=== PATIENT | male | born 1945 ===

== ENCOUNTER 2016-12-23 08:50 | Day surgery (SDC) | payer MEDICARE ==
[2016-12-23 09:37] VITALS: BMI 26.5
[2016-12-23] MEDS ORDERED: Midazolam 2 MG/2 ML VIAL ONE (10:54)
[2016-12-23] MEDS ORDERED: Propofol 10 mg/ml Inj (20 ML) ONE (10:54)
[2016-12-23] MEDS ORDERED: Lactated Ringer's 500 ML IV ONE (11:46)
[2016-12-23 13:39] VITALS: TEMP 96.8; O2SAT 100
[2016-12-23 13:43] VITALS: BP 112/84; PULSE 61; RESP 13
== END 2016-12-23 14:05 | disposition home or self-care (01) ==
LOC: C.ENDO 08:50
PROVIDERS: ATTEND Internal Medicine Gastroenterology
DX: K29.50 Unspecified chronic gastritis without bleeding (principal); K31.89 Other diseases of stomach and duodenum; D12.2 Benign neoplasm of ascending colon; K57.30 Diverticulosis of large intestine without perforation or abscess without bleeding; K64.8 Other hemorrhoids; I89.0 Lymphedema, not elsewhere classified
CPT/HCPCS: 43239; 45385; 88305; 88312; 88342; J2250; J2704; J7120

== ENCOUNTER 2017-05-12 09:48 | Inpatient (IN) | payer MEDICARE ==
[2017-05-12 09:48] VITALS: BMI 26.5
[2017-05-12] MEDS ORDERED: Bacitracin 500 Units/gm Oint Foilpak UD ONE (10:18)
--- NOTE | 2017-05-12 10:20 | C.PDOC ---
History Of Present Illness 71 year old male who presents to the ER after he was bite by his pitbull yesterday while playing with it. Patient notes it was a quick bite but is complaining of pain and redness today. Patient reports the dog has all it's vaccinations; denies fever. Time Seen by Provider: 05/12/17 10:05 Chief Complaint (Nursing): Bite History Per: Patient History/Exam Limitations: no limitations Onset/Duration Of Symptoms: Days Current Symptoms Are (Timing): Still Present Location Of Injury: Left: Forearm Quality Of Symptoms: Other (Bite) Recent travel outside of the [place]: No Past Medical History Reviewed: Historical Data, Nursing Documentation, Vital Signs Vital Signs: Last Vital Signs Temp 97.5 F L 05/15/17 07:54 Pulse 68 05/15/17 07:54 Resp 19 05/15/17 07:54 BP 118/65 05/15/17 07:54 Pulse Ox 93 L 05/15/17 07:54 - Medical History PMH: Arthritis (GENERALIZED), CAD, Gastritis, Hypercholesterolemia Surgical History: Endoscopy - [facility] Procedures CLOSURE SKIN & SUBCUTANEOUS NEC (06/20/13) TETANUS TOXOID ADMINIST (06/20/13) Family History: States: Unknown Family Hx - Social History Hx Tobacco Use: No Hx Alcohol Use: No Hx Substance Use: No - Immunization History Hx Tetanus Toxoid Vaccination: No Hx Influenza Vaccination: No Hx Pneumococcal Vaccination: No Review Of Systems Except As Marked, All Systems Reviewed And Found Negative. Constitutional: Negative for: Fever, Chills Musculoskeletal: Positive for: Arm Pain Skin: Positive for: Other (Bite) Neurological: Negative for: Weakness, Numbness Physical Exam - Physical Exam Appears: Non-toxic Skin: Warm, Dry Head: Atraumatic, Normacephalic Oral Mucosa: Moist Respiratory: No Accessory Muscle Use Extremity: Normal ROM (x4), Other (3 puncture wounds over left anterior forearm. Redness over distal 2/3 of the forearm. Induration around bite, no fluctuance or purulent discharge.) Pulses: Left Radial: Normal, Right Radial: Normal Neurological/Psych: Oriented x3, Normal Speech, Normal Cognition ED Course And Treatment - Laboratory Results Result Diagrams: 05/15/17 07:52 05/15/17 07:52 O2 Sat by Pulse Oximetry: 98 (Room air) Pulse Ox Interpretation: Normal Medical Decision Making Medical Decision Making: Plan: * Blood work * Left forearm x-ray * Tetanus vaccination * Piperacillin Disposition - Disposition Disposition: HOSPITALIZED Disposition Time: 10:53 Condition: STABLE - Clinical Impression Clinical Impression: Dog bite of arm, Cellulitis - Scribe Statement The provider has reviewed the documentation as recorded by the Scribe Flakito Tillman All medical record entries made by the Janelleibradha were at my direction and personally dictated by me. I have reviewed the chart and agree that the record accurately reflects my personal performance of the history, physical exam, medical decision making, and the department course for this patient. I have also personally directed, reviewed, and agree with the discharge instructions and disposition.
[2017-05-12] MEDS ORDERED: Piperacill/Tazo 3.375gm in Dex 3.375 GM/50 ML BAG IVPB STA (10:21)
[2017-05-12] MEDS ORDERED: Piperacillin/Tazobact 3.375 gm 100 ML IVPB ONE (10:34)
[2017-05-12 10:37] LABS: BASO # 0.1 K/uL (0.0-0.2); BASO % 0.6 % (0.0-2.0); EOS # 0.1 K/uL (0.0-0.7); EOS % 0.9 % (0.0-4.0); HEMATOCRIT 41.9 % (35.0-51.0); LYMPH % 17.7 % (20.0-40.0); MEAN CELL VOLUME 82.4 fL (80.0-94.0); MEAN CORPUSCULAR HEMOGLOBIN 27.7 pg (27.0-31.0); MEAN CORPUSCULAR HGB CONC 33.6 g/dL (33.0-37.0); MONO # 0.9 K/uL (0.0-0.8); MONO % 8.4 % (0.0-10.0); WHITE BLOOD COUNT 11.1 K/uL (4.8-10.8)
[2017-05-12 10:49] LABS: ALB/GLOB RATIO 1.1 (1.0-2.1); ALKALINE PHOSPHATASE 85 U/L (38-126); ALT/SGPT 31 U/L (21-72); AST/SGOT 23 U/L (17-59); BILIRUBIN,TOTAL 2.5 mg/dL (0.2-1.3); BLOOD UREA NITROGEN 15 mg/dL (9-20); CALCIUM 8.6 mg/dl (8.6-10.4); CARBON DIOXIDE 24 mmol/L (22-30); CHLORIDE 102 mmol/L (98-107); GFR AFRICAN-AMERICAN > 60; GLUCOSE,RANDOM 77 mg/dL (75-110); POTASSIUM 4.2 mmol/L (3.6-5.2); SODIUM 139 mmol/L (132-148); TOTAL PROTEIN 7.3 g/dL (6.3-8.3)
--- NOTE | 2017-05-12 11:00 | RAD ---
PROCEDURE: Radiographs of the left forearm. HISTORY: dog bite COMPARISON: None available. FINDINGS: BONES: No acute displaced fracture. JOINTS: No dislocation. SOFT TISSUES: Soft tissue swelling. Vascular calcifications. No evidence of radiopaque foreign body. JOINT EFFUSION: No significant joint effusion. OTHER FINDINGS: None IMPRESSION: Soft tissue swelling.
[2017-05-12] MEDS: HYDROmorphone 0.5 mg/0.5 ml ISec IVP PRN (12:57)
--- NOTE | 2017-05-12 13:38 | CP.PCM.CON ---
History of Present Illness - History of Present Illness History of Present Illness: 71 year old male who presents to the ER after he was bite by his pitbull yesterday while playing with it. Patient notes it was a quick bite but is complaining of pain and redness today. Patient reports the dog has all it's vaccinations; denies fever. right arm swollen warm tender - Medical History PMH: Arthritis (GENERALIZED), CAD, Gastritis, Hypercholesterolemia Surgical History: Endoscopy Review of Systems - Constitutional Constitutional: As Per HPI - EENT Eyes: absent: As Per HPI, Blind Spots, Blurred Vision, Change in Vision, Decreased Night Vision, Diplopia, Discharge, Dry Eye, Exophthalmos, Floaters, Irritation, Itchy Eyes, Loss of Peripheral Vision, Pain, Photophobia, Requires Corrective Lenses, Sees Flashes, Spots in Vision, Tunnel Vision, Other Visual Disturbances, Loss of Vision, Other Ears: absent: As Per HPI, Decreased Hearing, Ear Discharge, Ear Pain, Tinnitus, Abnormal Hearing, Disequilibrium, Dizziness, Other Nose/Mouth/Throat: absent: As Per HPI, Epistaxis, Nasal Congestion, Nasal Discharge, Nasal Obstruction, Nasal Trauma, Nose Pain, Post Nasal Drip, Sinus Pain, Sinus Pressure, Bleeding Gums, Change in Voice, Dental Pain, Dry Mouth, Dysphagia, Halitosis, Hoarsness, Lip Swelling, Mouth Lesions, Mouth Pain, Odynophagia, Sore Throat, Throat Swelling, Tongue Swelling, Facial Pain, Neck Pain, Neck Mass, Other - Cardiovascular Cardiovascular: absent: As Per HPI, Acrocyanosis, Chest Pain, Chest Pain at Rest , Chest Pain with Activity, Claudication, Diaphoresis, Dyspnea, Dyspnea on Exertion, Edema, Irregular Heart Rhythm, Pain Radiating to Arm/Neck/Jaw, Leg Edema, Leg Ulcers, Lightheadedness, Orthopnea, Palpitations, Paroxysmal Nocturnal Dyspnea, Pedal Edema, Radiating Pain, Rapid Heart Rate, Slow Heart Rate, Syncope, Other - Respiratory Respiratory: absent: As Per HPI, Cough, Dyspnea, Hemoptysis, Dyspnea on Exertion , Wheezing, Snoring, Stridor, Pain on Inspiration, Chest Congestion, Excessive Mucous Production, Change in Mucous Color, Pain with Coughing, Other - Gastrointestinal Gastrointestinal: absent: As Per HPI, Abdominal Pain, Belching, Bloating, Change in Bowel Habits, Change in Stool Character, Coffee Ground Emesis, Constipation, Cramping, Diarrhea, Dyspepsia, Dysphagia, Early Satiety, Excessive Flatus, Fecal Incontinence, Heartburn, Hematemesis, Hematochezia, Loose Stools, Melena, Nausea, Odynophagia, Temesmus, Vomiting, Other - Genitourinary Genitourinary: absent: As Per HPI, Change in Urinary Stream, Difficulty Urinating, Dysuria, Flank Pain, Hematuria, Pyuria, Nocturia, Urinary Incontinence, Urinary Frequency, Urinary Hesitance, Urinary Urgency, Voiding Freq/Small Amts, Freq UTI, Hx Renal/Bladder Calculi, Hx /Renal Surgery, Bladder Distension, Other - Musculoskeletal Musculoskeletal: As Per HPI - Integumentary Integumentary: As Per HPI - Neurological Neurological: absent: As Per HPI, Abnormal Gait, Abnormal Hearing, Abnormal Movements, Abnormal Speech, Behavioral Changes, Burning Sensations, Confusion, Convulsions, Disequilibrium, Dizziness, Numbness, Focal Weakness, Frequent Falls , Headaches, Lack of Coordination, Loss of Vision, Memory Loss, Paresthesias, Radicular Pain, Restless Legs, Sensory Deficit, Syncope, Tingling, Tremor, Vertigo, Weakness, Other Visual Disturbances, Other - Psychiatric Psychiatric: absent: As Per HPI, Abnormal Sleep Pattern, Anhedonia, Anxiety, Auditory Hallucinations, Behavioral Changes, Change in Appetite, Change in Libido, Confusion, Depression, Difficulty Concentrating, Hallucinations, Homicidal Ideation, Hopelessness, Irritability, Memory Loss, Mood Swings, Panic Attacks, Paranoia, Suicidal Ideation, Visual Hallucinations, Tactile Hallucinations, Other - Endocrine Endocrine: absent: As Per HPI, Change in Body Appearance, Change in Libido, Cold Intolorance, Deepening of Voice, Excessive Sweating, Fatigue, Flushing, Heat Intolorance, Increase in Ring/Shoe/Hat Size, Palpitations, Polydipsia, Polyphagia, Polyuria, Other - Hematologic/Lymphatic Hematologic: absent: As Per HPI, Easy Bleeding, Easy Bruising, Lymphadenopathy, Other Past Patient History - Past Medical History & Family History Past Medical History?: Yes - Past Social History Smoking Status: Former Smoker - CARDIAC Hx Hypercholesterolemia: Yes - PULMONARY Hx Respiratory Disorders: No - NEUROLOGICAL Hx Neurological Disorder: No - HEENT Hx HEENT Problems: Yes Hx Cataracts: Yes (BILATERAL) - RENAL Hx Chronic Kidney Disease: No - ENDOCRINE/METABOLIC Hx Endocrine Disorders: No - HEMATOLOGICAL/ONCOLOGICAL Hx Blood Disorders: No - INTEGUMENTARY Hx Dermatological Problems: No - MUSCULOSKELETAL/RHEUMATOLOGICAL Hx Arthritis: Yes (GENERALIZED) Hx Falls: No - GASTROINTESTINAL Hx Gastritis: Yes - GENITOURINARY/GYNECOLOGICAL Hx Genitourinary Disorders: Yes Hx Prostate Problems: Yes (BPH) - PSYCHIATRIC Hx Substance Use: No - SURGICAL HISTORY Hx Surgeries: Yes Hx Cataract Extraction: Yes (BIOL) Hx Herniorrhaphy: Yes (BILATERAL INGUINAL) Hx Musculoskeletal Surgery: Yes (FX LEFT LEG) Other/Comment: PROSTATE - ANESTHESIA Hx Anesthesia: Yes Hx Anesthesia Reactions: No Hx Malignant Hyperthermia: No Meds Allergies/Adverse Reactions: Allergies Allergy/AdvReac Type Severity Reaction Status Date / Time ibuprofen Allergy ANAPHYLAXIS Verified 05/12/17 10:03 ketorolac tromethamine Allergy ANAPHYLAXIS Verified 05/12/17 10:03 [From Toradol] - Medications Medications: Current Medications Hydromorphone HCl (Dilaudid) 0.5 mg IVP Q8H PRN PRN Reason: Pain, severe (8-10) Last Admin: 05/12/17 12:57 Dose: 0.5 mg Piperacillin Sod/Tazobactam Sod (Zosyn 3.375 Gm Iv Premix) 3.375 gm in 50 mls @ 100 mls/hr IVPB Q8H [facility] Physical Exam - Constitutional Appears: Non-toxic, No Acute Distress - Head Exam Head Exam: NORMOCEPHALIC - Eye Exam Eye Exam: absent: Scleral icterus - ENT Exam ENT Exam: Mucous Membranes Dry, Normal External Ear Exam - Neck Exam Neck exam: Negative for: Lymphadenopathy - Respiratory Exam Respiratory Exam: Decreased Breath Sounds - Cardiovascular Exam Cardiovascular Exam: REGULAR RHYTHM, +S1, +S2 - GI/Abdominal Exam GI & Abdominal Exam: Diminished Bowel Sounds, Soft. absent: Tenderness - Rectal Exam Rectal Exam: Deferred - Extremities Exam Extremities exam: Positive for: pedal pulses present. Negative for: calf tenderness, pedal edema, tenderness Additional comments: right forearm swelling + pulses ++ wounds noted - Back Exam Back exam: absent: CVA tenderness (L), CVA tenderness (R) - Neurological Exam Neurological exam: Alert, CN II-XII Intact, Oriented x3, Reflexes Normal - Psychiatric Exam Psychiatric exam: Normal Mood - Skin Skin Exam: Dry, Intact Results - Vital Signs Recent Vital Signs: Last Vital Signs Temp 97.5 F L 05/12/17 11:55 Pulse 61 05/12/17 11:55 Resp 20 05/12/17 11:55 BP 143/64 05/12/17 11:55 Pulse Ox 97 05/12/17 11:55 - Labs Result Diagrams: 05/12/17 10:29 05/12/17 10:29 Assessment & Plan (1) Dog bite of arm Status: Acute (2) Cellulitis Status: Acute - Assessment and Plan (Free Text) Assessment: cont rx cellulitis concern for pasteurella multocida IV Zosyn ordered
[2017-05-12] MEDS: Enoxaparin 40 mg Syringe SC SCH (14:08)
--- NOTE | 2017-05-12 14:29 | CP.PCM.PN ---
Subjective - Date & Time of Evaluation Date of Evaluation: 05/12/17 Time of Evaluation: 10:00 - Subjective Subjective: clinically same Objective - Vital Signs/Intake and Output Vital Signs (last 24 hours): Temp Pulse Resp BP Pulse Ox 97.5 F L 61 20 143/64 97 05/12/17 11:55 05/12/17 11:55 05/12/17 11:55 05/12/17 11:55 05/12/17 11:55 - Medications Medications: Current Medications Enoxaparin Sodium (Lovenox) 40 mg SC DAILY [facility] Last Admin: 05/12/17 14:08 Dose: 40 mg Hydromorphone HCl (Dilaudid) 0.5 mg IVP Q8H PRN PRN Reason: Pain, severe (8-10) Last Admin: 05/12/17 12:57 Dose: 0.5 mg Piperacillin Sod/Tazobactam Sod (Zosyn 3.375 Gm Iv Premix) 3.375 gm in 50 mls @ 100 mls/hr IVPB Q8H [facility] - Constitutional Appears: Well - Head Exam Head Exam: ATRAUMATIC, NORMAL INSPECTION, NORMOCEPHALIC - Eye Exam Eye Exam: EOMI, Normal appearance, PERRL Pupil Exam: NORMAL ACCOMODATION, PERRL - ENT Exam ENT Exam: Mucous Membranes Moist, Normal Exam - Neck Exam Neck Exam: Full ROM, Normal Inspection. absent: Lymphadenopathy - Respiratory Exam Respiratory Exam: Decreased Breath Sounds - Cardiovascular Exam Cardiovascular Exam: REGULAR RHYTHM, +S1, +S2 - GI/Abdominal Exam GI & Abdominal Exam: Soft, Diminished Bowel Sounds - Rectal Exam Rectal Exam: Deferred
[2017-05-12] MEDS: Piperacill/Tazo 3.375gm in Dex 3.375 GM/50 ML BAG IVPB SCH (17:35)
[2017-05-13] MEDS: Piperacill/Tazo 3.375gm in Dex 3.375 GM/50 ML BAG IVPB SCH ×3 (01:33→17:28)
[2017-05-13] MEDS: HYDROmorphone 0.5 mg/0.5 ml ISec IVP PRN ×2 (01:37→16:09)
[2017-05-13] MEDS: Enoxaparin 40 mg Syringe SC SCH (10:36)
--- NOTE | 2017-05-13 13:51 | CP.PCM.PN ---
Subjective - Date & Time of Evaluation Date of Evaluation: 05/13/17 Time of Evaluation: 13:45 - Subjective Subjective: Progress note. Service for Dr. Sinai Johnson Pt seen/examined at bedside. No acute distress. No events overnight. Pt complaining of some mild pain left forearm. No fevers, chills, vomiting, diarrhea, chest pain, sob. Objective - Vital Signs/Intake and Output Vital Signs (last 24 hours): Temp Pulse Resp BP Pulse Ox 97.6 F 64 20 117/68 96 05/13/17 08:18 05/13/17 08:18 05/13/17 08:18 05/13/17 08:18 05/13/17 08:18 - Medications Medications: Current Medications Enoxaparin Sodium (Lovenox) 40 mg SC DAILY [facility] Last Admin: 05/13/17 10:36 Dose: 40 mg Hydromorphone HCl (Dilaudid) 0.5 mg IVP Q8H PRN PRN Reason: Pain, severe (8-10) Last Admin: 05/13/17 01:37 Dose: 0.5 mg Piperacillin Sod/Tazobactam Sod (Zosyn 3.375 Gm Iv Premix) 3.375 gm in 50 mls @ 100 mls/hr IVPB Q8H [facility] Last Admin: 05/13/17 09:55 Dose: 100 mls/hr - Constitutional Appears: Non-toxic, No Acute Distress - Head Exam Head Exam: ATRAUMATIC, NORMAL INSPECTION, NORMOCEPHALIC - Eye Exam Eye Exam: EOMI - ENT Exam ENT Exam: Mucous Membranes Moist - Neck Exam Neck Exam: Full ROM, Normal Inspection - Respiratory Exam Respiratory Exam: NORMAL BREATHING PATTERN. absent: Respiratory Distress - Cardiovascular Exam Cardiovascular Exam: +S1, +S2 - GI/Abdominal Exam GI & Abdominal Exam: Soft, Normal Bowel Sounds. absent: Tenderness - Extremities Exam Extremities Exam: Full ROM, Tenderness. absent: Normal Inspection Additional comments: Cellulitis with some erythema left forearm - Neurological Exam Neurological Exam: Alert, Awake, Oriented x3 - Psychiatric Exam Psychiatric exam: Normal Affect, Normal Mood - Skin Skin Exam: Dry, Intact, Normal Color, Warm Assessment and Plan - Assessment and Plan (Free Text) Assessment: This is a 71 yo male with no past medical hx presenting s/p dog bite left forearm 1. Cellulitis left forearm -ID consult. Dr. Guthrie. recs appreciated -concern for Pasturella -cultures pending -pt afebrile -continue dilaudid for pain -continue IV zosyn q 8 -PT eval 2. GI/DVT ppx -lovenox daily -protonix daily dw Dr. Johnson.
[2017-05-13 14:03] LABS: BASO % 0.3 % (0.0-2.0); EOS # 0.1 K/uL (0.0-0.7); EOS % 1.2 % (0.0-4.0); LYMPH # 1.8 K/uL (1.0-4.3); LYMPH % 22.1 % (20.0-40.0); MEAN CELL VOLUME 83.2 fL (80.0-94.0); MEAN CORPUSCULAR HGB CONC 33.7 g/dL (33.0-37.0); MEAN PLATELET VOLUME 8.4 fL (7.2-11.7); MONO # 0.5 K/uL (0.0-0.8); MONO % 6.2 % (0.0-10.0); RED CELL DISTRIBUTION WIDTH 14.3 % (11.5-14.5); WHITE BLOOD COUNT 8.1 K/uL (4.8-10.8)
[2017-05-13 14:19] LABS: ALB/GLOB RATIO 1.1 (1.0-2.1); ALKALINE PHOSPHATASE 86 U/L (38-126); ALT/SGPT 31 U/L (21-72); AST/SGOT 19 U/L (17-59); BLOOD UREA NITROGEN 15 mg/dL (9-20); CALCIUM 8.7 mg/dl (8.6-10.4); CARBON DIOXIDE 28 mmol/L (22-30); CHLORIDE 99 mmol/L (98-107); GFR AFRICAN-AMERICAN > 60; GLUCOSE,RANDOM 122 mg/dL (75-110); POTASSIUM 4.5 mmol/L (3.6-5.2); SODIUM 138 mmol/L (132-148); TOTAL PROTEIN 6.9 g/dL (6.3-8.3)
--- NOTE | 2017-05-13 16:39 | CP.PCM.PN ---
Subjective - Date & Time of Evaluation Date of Evaluation: 05/13/17 Time of Evaluation: 07:00 - Subjective Subjective: left arm still warm red and swollen teender cultures pending iv rx in progress Objective - Vital Signs/Intake and Output Vital Signs (last 24 hours): Temp Pulse Resp BP Pulse Ox 97.4 F L 68 20 118/66 96 05/13/17 15:51 05/13/17 15:51 05/13/17 15:51 05/13/17 15:51 05/13/17 15:51 - Medications Medications: Current Medications Enoxaparin Sodium (Lovenox) 40 mg SC DAILY [facility] Last Admin: 05/13/17 10:36 Dose: 40 mg Hydromorphone HCl (Dilaudid) 0.5 mg IVP Q8H PRN PRN Reason: Pain, severe (8-10) Last Admin: 05/13/17 16:09 Dose: 0.5 mg Piperacillin Sod/Tazobactam Sod (Zosyn 3.375 Gm Iv Premix) 3.375 gm in 50 mls @ 100 mls/hr IVPB Q8H [facility] Last Admin: 05/13/17 09:55 Dose: 100 mls/hr Pantoprazole Sodium (Protonix Inj) 40 mg IVP DAILY [facility] Last Admin: 05/13/17 16:09 Dose: 40 mg - Labs Labs: 05/13/17 13:50 05/13/17 13:50 - Constitutional Appears: Non-toxic, Chronically Ill - Head Exam Head Exam: NORMOCEPHALIC - Eye Exam Eye Exam: PERRL - ENT Exam ENT Exam: Mucous Membranes Dry - Neck Exam Neck Exam: absent: Lymphadenopathy - Respiratory Exam Respiratory Exam: Decreased Breath Sounds - Cardiovascular Exam Cardiovascular Exam: REGULAR RHYTHM - GI/Abdominal Exam GI & Abdominal Exam: Distended, Soft - Rectal Exam Rectal Exam: Deferred - Exam Exam: NORMAL INSPECTION - Extremities Exam Extremities Exam: absent: Calf Tenderness, Pedal Edema - Back Exam Back Exam: absent: CVA tenderness (L), CVA tenderness (R), paraspinal tenderness - Neurological Exam Neurological Exam: Alert, Awake, Oriented x3 Assessment and Plan (1) Dog bite of arm Status: Acute (2) Cellulitis Status: Acute - Assessment and Plan (Free Text) Plan: cont iv rxd and wound care may need i and d
--- NOTE | 2017-05-13 22:01 | CP.PCM.PN ---
Subjective - Date & Time of Evaluation Date of Evaluation: 05/13/17 Time of Evaluation: 08:40 - Subjective Subjective: clinically same Objective - Vital Signs/Intake and Output Vital Signs (last 24 hours): Temp Pulse Resp BP Pulse Ox 97.4 F L 68 20 118/66 96 05/13/17 15:51 05/13/17 15:51 05/13/17 15:51 05/13/17 15:51 05/13/17 15:51 Intake and Output: 05/13/17 05/14/17 18:59 06:59 Intake Total 550 Balance 550 - Medications Medications: Current Medications Enoxaparin Sodium (Lovenox) 40 mg SC DAILY [facility] Last Admin: 05/13/17 10:36 Dose: 40 mg Hydromorphone HCl (Dilaudid) 0.5 mg IVP Q8H PRN PRN Reason: Pain, severe (8-10) Last Admin: 05/13/17 16:09 Dose: 0.5 mg Piperacillin Sod/Tazobactam Sod (Zosyn 3.375 Gm Iv Premix) 3.375 gm in 50 mls @ 100 mls/hr IVPB Q8H [facility] Last Admin: 05/13/17 17:28 Dose: 100 mls/hr Pantoprazole Sodium (Protonix Inj) 40 mg IVP DAILY [facility] Last Admin: 05/13/17 16:09 Dose: 40 mg Tamsulosin HCl (Flomax) 0.4 mg PO HS [facility] Last Admin: 05/13/17 21:35 Dose: Not Given - Labs Labs: 05/13/17 13:50 05/13/17 13:50 - Constitutional Appears: Well - Head Exam Head Exam: ATRAUMATIC, NORMAL INSPECTION, NORMOCEPHALIC - Eye Exam Eye Exam: EOMI, Normal appearance, PERRL Pupil Exam: NORMAL ACCOMODATION, PERRL - ENT Exam ENT Exam: Mucous Membranes Moist, Normal Exam - Neck Exam Neck Exam: Full ROM, Normal Inspection. absent: Lymphadenopathy - Respiratory Exam Respiratory Exam: Decreased Breath Sounds - Cardiovascular Exam Cardiovascular Exam: REGULAR RHYTHM, +S1, +S2 - GI/Abdominal Exam GI & Abdominal Exam: Soft, Diminished Bowel Sounds - Rectal Exam Rectal Exam: Deferred
[2017-05-14] MEDS: Piperacill/Tazo 3.375gm in Dex 3.375 GM/50 ML BAG IVPB SCH ×3 (01:00→17:22)
[2017-05-14 08:51] LABS: BASO % 0.3 % (0.0-2.0); EOS # 0.1 K/uL (0.0-0.7); EOS % 1.2 % (0.0-4.0); HEMATOCRIT 44.4 % (35.0-51.0); LYMPH # 1.9 K/uL (1.0-4.3); LYMPH % 26.4 % (20.0-40.0); MEAN CELL VOLUME 83.4 fL (80.0-94.0); MEAN CORPUSCULAR HEMOGLOBIN 28.2 pg (27.0-31.0); MEAN CORPUSCULAR HGB CONC 33.8 g/dL (33.0-37.0); MEAN PLATELET VOLUME 8.4 fL (7.2-11.7); MONO # 0.4 K/uL (0.0-0.8); MONO % 5.6 % (0.0-10.0); RED CELL DISTRIBUTION WIDTH 14.4 % (11.5-14.5); WHITE BLOOD COUNT 7.3 K/uL (4.8-10.8)
[2017-05-14 09:03] LABS: CHLORIDE 104 mmol/L (98-107); SODIUM 140 mmol/L (132-148)
[2017-05-14 09:04] LABS: POTASSIUM 4.4 mmol/L (3.6-5.2)
[2017-05-14 09:06] LABS: ALB/GLOB RATIO 1.1 (1.0-2.1); ALKALINE PHOSPHATASE 87 U/L (38-126); ALT/SGPT 27 U/L (21-72); AST/SGOT 23 U/L (17-59); BILIRUBIN,TOTAL 1.7 mg/dL (0.2-1.3); BLOOD UREA NITROGEN 15 mg/dL (9-20); CARBON DIOXIDE 26 mmol/L (22-30); GFR AFRICAN-AMERICAN > 60; GLUCOSE,RANDOM 105 mg/dL (75-110); TOTAL PROTEIN 7.7 g/dL (6.3-8.3)
[2017-05-14 09:07] LABS: CALCIUM 8.6 mg/dl (8.6-10.4)
--- NOTE | 2017-05-14 09:40 | CP.PCM.PN ---
Subjective - Date & Time of Evaluation Date of Evaluation: 05/14/17 Time of Evaluation: 08:40 - Subjective Subjective: clinically same Objective - Vital Signs/Intake and Output Vital Signs (last 24 hours): Temp Pulse Resp BP Pulse Ox 97.7 F 61 20 117/68 95 05/13/17 23:40 05/13/17 23:40 05/13/17 23:40 05/13/17 23:40 05/13/17 23:40 Intake and Output: 05/14/17 05/14/17 06:59 18:59 Intake Total 550 Balance 550 - Medications Medications: Current Medications Enoxaparin Sodium (Lovenox) 40 mg SC DAILY [facility] Last Admin: 05/13/17 10:36 Dose: 40 mg Hydromorphone HCl (Dilaudid) 0.5 mg IVP Q8H PRN PRN Reason: Pain, severe (8-10) Last Admin: 05/13/17 16:09 Dose: 0.5 mg Piperacillin Sod/Tazobactam Sod (Zosyn 3.375 Gm Iv Premix) 3.375 gm in 50 mls @ 100 mls/hr IVPB Q8H [facility] Last Admin: 05/14/17 01:00 Dose: 100 mls/hr Pantoprazole Sodium (Protonix Inj) 40 mg IVP DAILY [facility] Last Admin: 05/13/17 16:09 Dose: 40 mg Tamsulosin HCl (Flomax) 0.4 mg PO HS [facility] Last Admin: 05/13/17 21:35 Dose: Not Given - Labs Labs: 05/14/17 08:39 05/14/17 08:39 - Constitutional Appears: Well - Head Exam Head Exam: ATRAUMATIC, NORMAL INSPECTION, NORMOCEPHALIC - Eye Exam Eye Exam: EOMI, Normal appearance, PERRL Pupil Exam: NORMAL ACCOMODATION, PERRL - ENT Exam ENT Exam: Mucous Membranes Moist, Normal Exam - Neck Exam Neck Exam: Full ROM, Normal Inspection. absent: Lymphadenopathy - Respiratory Exam Respiratory Exam: Decreased Breath Sounds - Cardiovascular Exam Cardiovascular Exam: REGULAR RHYTHM, +S1, +S2 - GI/Abdominal Exam GI & Abdominal Exam: Soft, Diminished Bowel Sounds - Rectal Exam Rectal Exam: Deferred Assessment and Plan - Assessment and Plan (Free Text) Plan: IV antibiotic continue 1 more day will evaluate the patient again tomorrow IV dressing ID consult Possible discharge tomorrow
[2017-05-14] MEDS: Enoxaparin 40 mg Syringe SC SCH (10:02)
--- NOTE | 2017-05-14 13:30 | CP.PCM.PN ---
<David Santiago - Last Filed: 05/14/17 13:30> Subjective - Date & Time of Evaluation Date of Evaluation: 05/14/17 Time of Evaluation: 13:30 - Subjective Subjective: Progress note. Attending: Dr. Sinai Johnson Pt seen and examined at bedside. No acute distress. No events overnight. Pt still getting IV abx, culture negative. No fevers, chills, vomiting, diarrhea. No chest pain, no shortness of breath. Objective - Vital Signs/Intake and Output Vital Signs (last 24 hours): Temp Pulse Resp BP Pulse Ox 97.7 F 61 20 117/68 95 05/13/17 23:40 05/13/17 23:40 05/13/17 23:40 05/13/17 23:40 05/13/17 23:40 Intake and Output: 05/14/17 05/14/17 06:59 18:59 Intake Total 550 Balance 550 - Medications Medications: Current Medications Enoxaparin Sodium (Lovenox) 40 mg SC DAILY [facility] Last Admin: 05/14/17 10:02 Dose: 40 mg Hydromorphone HCl (Dilaudid) 0.5 mg IVP Q8H PRN PRN Reason: Pain, severe (8-10) Last Admin: 05/13/17 16:09 Dose: 0.5 mg Piperacillin Sod/Tazobactam Sod (Zosyn 3.375 Gm Iv Premix) 3.375 gm in 50 mls @ 100 mls/hr IVPB Q8H [facility] Last Admin: 05/14/17 09:57 Dose: 100 mls/hr Pantoprazole Sodium (Protonix Inj) 40 mg IVP DAILY [facility] Last Admin: 05/14/17 10:01 Dose: 40 mg Tamsulosin HCl (Flomax) 0.4 mg PO BID [facility] Last Admin: 05/14/17 10:23 Dose: 0.4 mg - Labs Labs: 05/14/17 08:39 05/14/17 08:39 - Constitutional Appears: Non-toxic, No Acute Distress - Head Exam Head Exam: ATRAUMATIC, NORMAL INSPECTION, NORMOCEPHALIC - Eye Exam Eye Exam: EOMI - ENT Exam ENT Exam: Mucous Membranes Moist - Respiratory Exam Respiratory Exam: NORMAL BREATHING PATTERN. absent: Respiratory Distress - GI/Abdominal Exam GI & Abdominal Exam: Soft, Normal Bowel Sounds. absent: Tenderness - Extremities Exam Extremities Exam: Full ROM. absent: Normal Inspection Additional comments: Cellulitis, improving, left forearm. Mild tenderness to palpation. - Neurological Exam Neurological Exam: Alert, Awake, Oriented x3 - Psychiatric Exam Psychiatric exam: Normal Affect, Normal Mood - Skin Skin Exam: Dry, Intact, Normal Color, Warm Assessment and Plan - Assessment and Plan (Free Text) Assessment: This is a 71 yo male with past medical hx of BPH presenting s/p dog bite left forearm 1. Cellulitis left forearm -ID consult. Dr. Guthrie. recs appreciated -concern for Pasturella -cultures negative thus far -pt afebrile -continue dilaudid for pain -continue IV zosyn q 8 -PT eval 2. Hx of BPH -continue flomax bid 3. GI/DVT ppx -lovenox daily -protonix daily dw Dr. Johnson. <Jazmin Johnson S - Last Filed: 05/15/17 00:38> Objective - Vital Signs/Intake and Output Vital Signs (last 24 hours): Temp Pulse Resp BP Pulse Ox 98.4 F 71 20 136/64 94 L 05/14/17 16:18 05/14/17 16:18 05/14/17 16:18 05/14/17 16:18 05/14/17 16:18 - Medications Medications: Current Medications Enoxaparin Sodium (Lovenox) 40 mg SC DAILY [facility] Last Admin: 05/14/17 10:02 Dose: 40 mg Hydromorphone HCl (Dilaudid) 0.5 mg IVP Q8H PRN PRN Reason: Pain, severe (8-10) Last Admin: 05/13/17 16:09 Dose: 0.5 mg Piperacillin Sod/Tazobactam Sod (Zosyn 3.375 Gm Iv Premix) 3.375 gm in 50 mls @ 100 mls/hr IVPB Q8H [facility] Last Admin: 05/14/17 17:22 Dose: 100 mls/hr Pantoprazole Sodium (Protonix Inj) 40 mg IVP DAILY [facility] Last Admin: 05/14/17 10:01 Dose: 40 mg Tamsulosin HCl (Flomax) 0.4 mg PO BID [facility] Last Admin: 05/14/17 18:22 Dose: 0.4 mg Attending/Attestation - Attestation I have personally seen and examined this patient.: Yes I have fully participated in the care of the patient.: Yes I have reviewed all pertinent clinical information, including history, physical exam and plan: Yes Notes (Text): 05/15/17 00:38 Is seen and discussed with the staff and the resident patient's continued to have still pain patient is much better patient is on Zosyn may discharge if he is okay with ID continue pain medications
[2017-05-15] MEDS: Piperacill/Tazo 3.375gm in Dex 3.375 GM/50 ML BAG IVPB SCH ×2 (01:02→10:00)
[2017-05-15] MEDS: HYDROmorphone 0.5 mg/0.5 ml ISec IVP PRN (06:40)
[2017-05-15 07:55] VITALS: BP 118/65; PULSE 68; RESP 19; TEMP 97.5
[2017-05-15 08:03] LABS: BASO % 0.4 % (0.0-2.0); EOS # 0.1 K/uL (0.0-0.7); EOS % 1.8 % (0.0-4.0); HEMATOCRIT 44.5 % (35.0-51.0); LYMPH # 2.6 K/uL (1.0-4.3); LYMPH % 33.5 % (20.0-40.0); MEAN CELL VOLUME 83.2 fL (80.0-94.0); MEAN CORPUSCULAR HEMOGLOBIN 27.8 pg (27.0-31.0); MEAN CORPUSCULAR HGB CONC 33.5 g/dL (33.0-37.0); MEAN PLATELET VOLUME 8.3 fL (7.2-11.7); MONO # 0.5 K/uL (0.0-0.8); MONO % 6.3 % (0.0-10.0); RED CELL DISTRIBUTION WIDTH 14.6 % (11.5-14.5); WHITE BLOOD COUNT 7.9 K/uL (4.8-10.8)
[2017-05-15 08:07] LABS: CHLORIDE 104 mmol/L (98-107)
[2017-05-15 08:08] LABS: POTASSIUM 4.5 mmol/L (3.6-5.2); SODIUM 141 mmol/L (132-148)
[2017-05-15 08:10] LABS: BILIRUBIN,TOTAL 1.4 mg/dL (0.2-1.3); CARBON DIOXIDE 26 mmol/L (22-30); GFR AFRICAN-AMERICAN > 60
[2017-05-15 08:11] LABS: ALB/GLOB RATIO 1.2 (1.0-2.1); AST/SGOT 25 U/L (17-59); TOTAL PROTEIN 7.6 g/dL (6.3-8.3)
[2017-05-15 08:13] LABS: ALKALINE PHOSPHATASE 89 U/L (38-126); ALT/SGPT 28 U/L (21-72); BLOOD UREA NITROGEN 15 mg/dL (9-20); CALCIUM 8.8 mg/dl (8.6-10.4); GLUCOSE,RANDOM 108 mg/dL (75-110)
--- NOTE | 2017-05-15 09:20 | CP.PCM.PN ---
Subjective - Date & Time of Evaluation Date of Evaluation: 05/15/17 Time of Evaluation: 07:00 - Subjective Subjective: PGY2 Resident - Medicine Progress Note Patient seen and examined at bedside. No overnight events per nursing. Patient is resting comfortably, reports his left arm pain has resolved and he is asking to go home. He is tolerating his diet, having normal bowel movements, and has been afebrile. Denies fever, chills, headache, changes in vision, chest pain, palpitations, dyspnea, cough, abdominal pain, nausea/vomiting, diarrhea/ constipation, dysuria, urinary frequency, change in urinary stream, or any additional acute complaints. -------- Patient is stable for discharge per Dr. Pilar Johnson. Patient should resume all medications as outlined in this document. Additionally, patient should take the new medications listed below (scripts provided). 1. Please make an appointment and follow up with your Primary Doctor Dr. Pilar Johnson this Thursday05/18/17. 2. Please take your antibiotic until complete. Augmentin 875mg Orally Twice per day - take for 7 days. Patient should return to ED immediately if symptoms return or worsen. Instructions discussed with patient who understood and agreed. Objective - Vital Signs/Intake and Output Vital Signs (last 24 hours): Temp Pulse Resp BP Pulse Ox 97.5 F L 68 19 118/65 93 L 05/15/17 07:54 05/15/17 07:54 05/15/17 07:54 05/15/17 07:54 05/15/17 07:54 - Medications Medications: Current Medications Enoxaparin Sodium (Lovenox) 40 mg SC DAILY [facility] Last Admin: 05/14/17 10:02 Dose: 40 mg Hydromorphone HCl (Dilaudid) 0.5 mg IVP Q8H PRN PRN Reason: Pain, severe (8-10) Last Admin: 05/15/17 06:40 Dose: 0.5 mg Piperacillin Sod/Tazobactam Sod (Zosyn 3.375 Gm Iv Premix) 3.375 gm in 50 mls @ 100 mls/hr IVPB Q8H [facility] Last Admin: 05/15/17 01:02 Dose: 100 mls/hr Pantoprazole Sodium (Protonix Inj) 40 mg IVP DAILY [facility] Last Admin: 05/14/17 10:01 Dose: 40 mg Tamsulosin HCl (Flomax) 0.4 mg PO BID [facility] Last Admin: 05/14/17 18:22 Dose: 0.4 mg - Labs Labs: 05/15/17 07:52 05/15/17 07:52 - Additional Findings Additional findings: - Constitutional Appears: Non-toxic, No Acute Distress - Head Exam Head Exam: ATRAUMATIC, NORMAL INSPECTION, NORMOCEPHALIC - Eye Exam Eye Exam: EOMI - ENT Exam ENT Exam: Mucous Membranes Moist - Respiratory Exam Respiratory Exam: NORMAL BREATHING PATTERN. absent: Respiratory Distress - GI/Abdominal Exam GI & Abdominal Exam: Soft, Normal Bowel Sounds. absent: Tenderness - Extremities Exam Extremities Exam: Full ROM. absent: Normal Inspection Additional comments: 3 puncture wounds over left anterior forearm. Cellulitis of left forearm, improved. No tenderness to palpation. No Fluctuance. Scab in tact. No warmth. Radial pulses in tact b/l. - Neurological Exam Neurological Exam: Alert, Awake, Oriented x3 - Psychiatric Exam Psychiatric exam: Normal Affect, Normal Mood - Skin Skin Exam: Dry, Intact, Normal Color, Warm Assessment and Plan - Assessment and Plan (Free Text) Assessment: This is a 71 yo male with past medical hx of BPH presenting s/p dog bite left forearm 1. Cellulitis left forearm 05/15: healing well. Continue IV abx. Possible discharge -ID consult. Dr. Guthrie. recs appreciated -concern for [place] -cultures negative thus far -pt afebrile -continue dilaudid for pain prn -continue IV zosyn q 8 -PT eval 2. Hx of BPH -continue flomax bid 3. GI/DVT ppx -lovenox daily -protonix daily Case discussed with attending. All medical management as per Dr. Pilar Johnson
[2017-05-15] MEDS: Enoxaparin 40 mg Syringe SC SCH (10:00)
[2017-05-16 18:42] VITALS: O2SAT 98
== END 2017-05-15 14:10 | disposition home or self-care (01) | DRG 605 ==
LOC: C.ER 09:48 → C.5T 10:53 → C.5S 05-13 09:13 → OBSVTOIN 05-14 17:09
PROVIDERS: ADMIT Internal Medicine Nephrology; ATTEND Internal Medicine Nephrology
DX: S50.812A Abrasion of left forearm, initial encounter (principal); L03.114 Cellulitis of left upper limb; B96.89 Other specified bacterial agents as the cause of diseases classified elsewhere; I25.10 Atherosclerotic heart disease of native coronary artery without angina pectoris; E78.00 Pure hypercholesterolemia, unspecified; N40.0 Benign prostatic hyperplasia without lower urinary tract symptoms; Z87.891 Personal history of nicotine dependence; W54.0XXA Bitten by dog, initial encounter

== ENCOUNTER 2017-12-16 08:55 | Day surgery (SDC) | payer MEDICARE, OTHER ==
[2017-12-16] MEDS ORDERED: Propofol 10 mg/ml Inj (20 ML) ONE (10:57)
[2017-12-16] MEDS ORDERED: Lidocaine Hydrochloride 5 ML INJ ONE (10:57)
[2017-12-16] MEDS ORDERED: Lactated Ringer's 500 ML IV ONE (10:58)
[2017-12-16 12:43] VITALS: TEMP 98.4
[2017-12-16 12:51] VITALS: BP 138/70; PULSE 68; RESP 20; O2SAT 99
== END 2017-12-16 12:50 | disposition home or self-care (01) ==
LOC: C.ENDO 08:55
PROVIDERS: ATTEND Internal Medicine Gastroenterology
DX: Z12.11 Encounter for screening for malignant neoplasm of colon (principal); Z86.010 Personal history of colon polyps; R10.13 Epigastric pain; K57.30 Diverticulosis of large intestine without perforation or abscess without bleeding; K64.1 Second degree hemorrhoids; K29.70 Gastritis, unspecified, without bleeding; E78.5 Hyperlipidemia, unspecified; N40.0 Benign prostatic hyperplasia without lower urinary tract symptoms; Z79.899 Other long term (current) drug therapy
CPT/HCPCS: 43239; 88305; G0105; J2704; J7120

== ENCOUNTER 2019-02-02 14:29 | Outpatient (CLI) | payer MEDICARE | END 2019-02-02 14:30 | disposition home or self-care (01) | LOC: C.MRIC 14:30 ==